=== PATIENT | male | born 1960 | race Two or more races ===

== ENCOUNTER 2024-04-19 03:54 | Emergency (ER) | payer OTHER ==
[~2024-04-19] VITALS: Ht 172.7 cm; Wt 80.7 kg
[2024-04-19] MEDS ORDERED: TRAZODONE HCL50 MG (04:15)
[2024-04-19] MEDS ORDERED: REPATHA SU140 MG/1 M (04:15)
[2024-04-19] MEDS ORDERED: XANAX XR0.5 MG (04:15)
[2024-04-19] MEDS ORDERED: DEXAMETHASONE SODIUM PHOSPHATE 4 MG/ML VIAL IM STA (05:21)
[2024-04-19] MEDS ORDERED: KETOROLAC TROMETHAMINE 60 MG VIAL IM STA (05:21)
[2024-04-19] MEDS ORDERED: ACETAMINOPHEN 500 MG GEL..CAP PO STA (05:22)
[2024-04-19] MEDS ORDERED: ACETAMINOPHEN 500 MG GEL..CAP PO ONE (05:30)
[2024-04-19] MEDS ORDERED: KETOROLAC TROMETHAMINE 60 MG VIAL IM ONE (05:30)
[2024-04-19] MEDS ORDERED: DEXAMETHASONE SODIUM PHOSPHATE 4 MG/ML VIAL ONE (05:30)
== END 2024-04-19 05:40 | disposition home or self-care (01) ==
LOC: ER 03:54
DX: J06.9 Acute upper respiratory infection, unspecified (principal); J32.0 Chronic maxillary sinusitis